=== PATIENT | male | born 1970 | race Caucasian/White ===

== ENCOUNTER 2019-02-04 07:24 | Day surgery (SDC) | payer OTHER ==
[2019-01-29 10:17] VITALS: BMI 26.6
[2019-02-04] MEDS ORDERED: MIDAZOLAM HCL 2 MG/2 ML SINGLE DOSE VIAL ONE (08:54)
[2019-02-04] MEDS ORDERED: DEXAMETHASONE SOD PHOSPHATE 4 MG/1 ML VIAL ONE (08:55)
[2019-02-04] MEDS ORDERED: ONDANSETRON 4 MG/2 ML VIAL ONE (08:55)
[2019-02-04] MEDS ORDERED: LIDOCAINE HCL/PF 2% SDV 5ML VIAL ONE (09:20)
[2019-02-04] MEDS ORDERED: ONDANSETRON 4 MG/2 ML VIAL IVPUSH PRN (09:48)
[2019-02-04] MEDS ORDERED: oxyCODONE HCL 5 MG TABLET PO PRN ×2 (09:48)
[2019-02-04] MEDS ORDERED: BUPIVACAINE HCL/PF 0.25% (2.5MG/ML) 10 ML VIAL IJ ONE (09:59)
[2019-02-04] MEDS ORDERED: LACTATED RINGERS SOLUTION 1,000 ML IV SCH (10:00)
[2019-02-04 11:25] VITALS: TEMP 97.6
[2019-02-04 11:51] VITALS: BP 111/69; PULSE 68
--- NOTE | 2019-02-06 18:15 | PATH ---
Surgical Pathology Report Patient Name: DEYSI PIKE [facility]. Rec. #: [id number] /Age/Gender: 1970 (Age: 48) / M Account: [id number] Location: [facility] Taken: 02/04/2019 Received: 02/04/2019 Reported: 02/06/2019 Physicians: Siddharth Munoz M.D. Specimen(s) Received LEFT HAND MASS Clinical History Left hand mass Final Diagnosis HAND, LEFT, MASS, EXCISION: MATURE FIBROADIPOSE TISSUE CONSISTENT WITH LIPOMA. Electronically Signed Christie Munguia M.D. Gross Description Received in formalin labeled "left hand mass," is a 4.6 x 3.4 x 2.0 cm soft tissue mass. Sectioning reveals homogeneous yellow adipose tissue. No areas of hemorrhage or necrosis are identified. Sheet Metal Superintendent sections are submitted in 3 cassettes. /02/05/2019 saudi02/05/2019
--- NOTE | 2019-02-08 13:49 | HP ---
DATE OF ADMISSION: 02/04/2019 SURGEON: Tona Melendez MD PUNCH MACHINE HAND: BETSY Nunes PREOPERATIVE DIAGNOSIS: Left hand intermuscular mass. POSTOPERATIVE DIAGNOSIS: Left hand intermuscular mass. OPERATIVE PROCEDURE: Excision of mass and biopsy, left hand mass. ANESTHESIA: General. COMPLICATIONS: None. ESTIMATED BLOOD LOSS: Minimal. INDICATION FOR PROCEDURE: The patient is a 48-year-old male with the above finding, indicated for operative treatment. Risks, benefits, alternatives were discussed with patient at length. Proper informed consent was obtained. He was specifically informed that if this turned out to be a malignant lesion, he would likely need to have further surgery and intervention. He also understood that due to the large size and sensitive area of this mass, nerve or blood vessel damage was possible. He desired to proceed. PROCEDURE: After proper identification of patient and correct operative site, patient brought to the operating room, placed supine on the table, prominences well padded. The left upper extremity was prepped and draped in the usual sterile fashion. A well-padded tourniquet was placed over the sterile prep. Of note, prior to the procedure, his MRI films were reviewed in detail. Esmarch bandage to exsanguinate left upper extremity, tourniquet inflated to 250 mmHg. A curvilinear incision was made over the dorsal aspect of the thumb, index, web space. This incision was made approximately from the level of the thumb metacarpophalangeal joint down to the level of the carpometacarpal joint. This was made approximately 2 cm ulnar to the thumb metacarpal. Incision was taken sharply through the skin with blunt and sharp dissection through the subcutaneous tissues. Muscles fibers were split. Blunt dissection was done through the tissues in this area. The mass was found to be well circumscribed and firm and was shelled out using finger dissection. The mass had several small adhesions which were released sharply. Care was taken to protect neurovascular and surrounding structures. The mass was approximately 3 cm x 4 cm and sent for pathological evaluation. The area was inspected and no further mass was noted. The wound was irrigated and repaired with a 5-0 fast-absorbing plain gut suture. Sterile dressings were applied. A thumb web space bulky dressing was placed to hold the thumb web space open. Sterile dressings were applied. The patient was reversed from anesthesia and brought to the recovery room in stable condition. He tolerated the procedure well. Jackie Solomon, the assistant basketball coach, was integral throughout the procedure. The procedure could not have been performed without a skilled operative assistant basketball coach. TONA MELENDEZ M.D. LAURA/[id number]
== END 2019-02-04 12:00 | disposition home or self-care (01) ==
LOC: FASU 07:24
PROVIDERS: ATTEND Orthopaedic Surgery Hand Surgery
PROC: 0KBD0ZZ Excision of Left Hand Muscle, Open Approach (ICD-10-PCS; principal; 2019-02-04 09:17)
DX: D21.12 Benign neoplasm of connective and other soft tissue of left upper limb, including shoulder (principal)
CPT/HCPCS: 88304-TC; 94760